=== PATIENT | female | born 1980 | race Caucasian/White ===

== ENCOUNTER 2017-09-10 10:21 | Outpatient (CLI) | payer OTHER | END 2017-09-10 10:29 | disposition home or self-care (01) | LOC: SONOGRAMA 10:21 | DX: D25.9 Leiomyoma of uterus, unspecified (principal) ==

== ENCOUNTER 2017-10-03 08:54 | Day surgery (SDC) | payer OTHER ==
[~2017-10-03 08:54] MED LIST: FOLBIC TABLET1 EACH PO; MULTI-DAY PLUS1 EACH PO
== END 2017-10-03 23:55 | disposition home or self-care (01) ==
LOC: CIR.AMB 08:54
DX: N84.0 Polyp of corpus uteri (principal)

== ENCOUNTER → 2020-07-07 | Outpatient (CLI) | payer OTHER | END | disposition home or self-care (01) | LOC: PRENATAL 10:00 | PROVIDERS: ATTEND Obstetrics & Gynecology Maternal & Fetal Medicine | DX: Z36.89 Encounter for other specified antenatal screening (principal); O09.811 Supervision of pregnancy resulting from assisted reproductive technology, first trimester; O36.80X1 Pregnancy with inconclusive fetal viability, fetus 1; O09.521 Supervision of elderly multigravida, first trimester; Z3A.14 14 weeks gestation of pregnancy ==

== ENCOUNTER → 2020-08-09 | Outpatient (CLI) | payer OTHER | END | disposition home or self-care (01) | LOC: PRENATAL 10:00 | PROVIDERS: ATTEND Obstetrics & Gynecology Maternal & Fetal Medicine | DX: O35.3XX1 Maternal care for (suspected) damage to fetus from viral disease in mother, fetus 1 (principal); O35.0XX1 Maternal care for (suspected) central nervous system malformation in fetus, fetus 1; O34.42 Maternal care for other abnormalities of cervix, second trimester; O98.512 Other viral diseases complicating pregnancy, second trimester; O09.522 Supervision of elderly multigravida, second trimester; O09.812 Supervision of pregnancy resulting from assisted reproductive technology, second trimester; Z36.89 Encounter for other specified antenatal screening; Z3A.19 19 weeks gestation of pregnancy ==